=== PATIENT | male | born 1945 | race Caucasian/White ===

== ENCOUNTER 2022-06-15 19:21 | Emergency (ER) | payer MEDICARE, BC ==
[~2022-06-15 19:21] MED LIST: ASPIRIN CHEWABL81 MG PO; CRESTOR5 MG PO; CYANOCOBAL1000 MCG/1 INJ; HYDROCHLOROTHIA50 MG PO; HYDROCODON-ACE1 EAC2 PO; K-TAB ER20 MEQ PO; MEN'S MULTIVIT1 EACH PO; NASACORT16.9 ML; NORCO 10-325 T1 EACH PO; NORCO 7.5-3251 EACH PO; TESTOSTERO200 MG/1 M IM; TRANDATE 100 M100 MG PO; ZYLOPRIM 300 M300 MG PO
[2022-06-15] MEDS ORDERED: HYDROCODON-ACE1 EAC4 PO (22:44)
[2022-06-15] MEDS ORDERED: IBUPROFEN600 MG PO (22:46)
== END 2022-06-15 23:00 | disposition home or self-care (01) ==
LOC: ER1 19:21
DX: S76.111A Strain of right quadriceps muscle, fascia and tendon, initial encounter (principal); S80.01XA Contusion of right knee, initial encounter; I10 Essential (primary) hypertension; Z88.1 Allergy status to other antibiotic agents; W01.0XXA Fall on same level from slipping, tripping and stumbling without subsequent striking against object, initial encounter; Y92.009 Unspecified place in unspecified non-institutional (private) residence as the place of occurrence of the external cause
CPT/HCPCS: 73564; 73700; 99283

== ENCOUNTER → 2022-06-26 | Outpatient (CLI) | payer MEDICARE, BC ==
[~2022-06-26] MED LIST changes: +HYDROCODON-ACE1 EAC4 PO; +IBUPROFEN600 MG PO; +LOW DOSE ASPIRI81 MG PO; +MUPIROCIN22 GM TOP; +NASACORT SPRAY; +TESTOSTERO200 MG/1 M INJ; +VITAMIN B12 INJ
== END ==
LOC: KOH-I 16:15
DX: S76.111A Strain of right quadriceps muscle, fascia and tendon, initial encounter (principal)
CPT/HCPCS: 73721

== ENCOUNTER 2022-06-29 05:31 | Day surgery (SDC) | payer MEDICARE, BC ==
[~2022-06-29] VITALS: Ht 180.3 cm; Wt 94.8 kg
[2022-06-29 07:36] LABS: HEMOGLOBIN 15.5 gm/dl (14.0-17.5); RED BLOOD COUNT 4.76 M/UL (4.20-5.50); WHITE BLOOD COUNT 11.4 K/UL (4.5-11.0)
[2022-06-30] MEDS ORDERED: LOVENOX40 MG/0.4 SQ (08:23)
[2022-06-30] MEDS ORDERED: HYDROCODON-ACE1 EAC6 PO ×2 (08:23→08:31)
[2022-06-30] MEDS ORDERED: COLACE 100MG C100 MG PO (08:23)
--- NOTE | 2022-06-30 10:45 | NUR ---
PT AND PATIENT EDUCATED ON LOVENOX INJECTIONS WITH VERBAL AND VISUAL DEMONSTRATION. BOTH STATED THAT THEY UNDERSTOOD HOW TO DO THE INJECTIONS PROPERLY AND S/S OF ANY COMPLICATIONS.
== END 2022-06-30 11:30 | disposition home or self-care (01) ==
LOC: OR 05:31 → CCU 13:23 → OR 15:25
PROVIDERS: Orthopaedic Surgery
DX: S76.111A Strain of right quadriceps muscle, fascia and tendon, initial encounter (principal); I10 Essential (primary) hypertension; E78.5 Hyperlipidemia, unspecified; W19.XXXA Unspecified fall, initial encounter; Y92.008 Other place in unspecified non-institutional (private) residence as the place of occurrence of the external cause; Z91.81 History of falling; Z79.82 Long term (current) use of aspirin
CPT/HCPCS: 80048; 85025; 93005; 97116; 97161; 97165; 97530; C1713; J0690; J1100; J1650; J1885; J2001; J2250; J2405; J2704; J2795; J3010